=== PATIENT | male | born 1925 | race Two or more races ===

== ENCOUNTER → 2017-07-09 | Outpatient (CLI) | payer MEDICARE, OTHER ==
--- NOTE | 2017-07-09 17:21 | RAD ---
PQRS Compliance Statement: One or more of the following individualized dose reduction techniques were utilized for this examination: 1. Automated exposure control 2. Adjustment of the mA and/or kV according to patient size 3. Use of iterative reconstruction technique CT THORACIC SPINE WO CONTRAST Clinical Indication: SEVERE BACK PAIN, PATIENT KYPHOTIC, UNABLE TO BRING ARMS ABOVE HEAD Comparison: CT lumbar spine without contrast, same day. TECHNIQUE: Helical CT imaging of the thoracic spine is performed without IV contrast. Findings: Please refer to separately dictated CT lumbar spine for additional findings. There is mild nonacute compression fracture at the superior endplate of T3. There is moderate compression fracture of the T12 vertebral body. There is air along the fracture lines and at the T12/L1 disc space. Fracture lines do not reach the posterior cortex to suggest a burst fracture. There is mild retropulsion of the fracture with probably mild central canal stenosis. No high-grade central canal stenosis is identified in the thoracic spine. The vertebral body heights are otherwise maintained. The vertebral body alignment is maintained on the lateral view. There is focal kyphosis at T12. Coronary artery disease. Cardiac size upper limits of normal. No pericardial effusion. There are bilateral renal cysts. There are probably trace bilateral pleural effusions. There are groundglass or reticular opacities in the dependent lungs that may be atelectasis or scarring. There are peripheral reticular opacities that are probably chronic. Respiratory motion artifact limits evaluation. IMPRESSION: 1. There is moderate compression fracture of the T12 vertebral body that appears to be subacute to chronic. There is mild retropulsion with mild central canal stenosis. Acuity could be further assessed with MR. 2. Nonacute mild compression fracture at the superior endplate of T3. Electronically signed by: Gildardo Motta MD (07/09/2017 5:18 PM) [id number]
--- NOTE | 2017-07-09 17:54 | RAD ---
EXAM: Lumbar spine CT without contrast. HISTORY: Pain. TECHNIQUE: Computed tomographic images of the lumbar spine were obtained without contrast. Multiplanar reformatting was performed. *One or more of the following individualized dose reduction techniques were utilized for this examination: 1. Automated exposure control. 2. Adjustment of the mA and/or kV according to patient size. 3. Use of iterative reconstruction technique. COMPARISON: None. FINDINGS: There is a severe T12 compression fracture with greater than 75 percent loss of anterior vertebral body height and approximately 7 mm retropulsion of the posterior cortex into the central canal, with associated moderate central canal and bilateral T12-L1 foraminal stenosis. There is gas within an open fracture line at this level, suggesting a subacute etiology. This may also be subacute on chronic. There is also a subacute or chronic nonunited left 12th rib fracture. There is a severe chronic appearing compression fracture of L2 with near complete loss of anterior vertebral body height and 4 mm retropulsion of the cortex into the central canal, with associated [id number] central canal and bilateral L2-L3 foraminal stenosis. There is a small amount of gas within this vertebral body, suggesting a possible superimposed subacute fracture. There are mild chronic appearing compression fractures of L3 and L5. There is degenerative endplate remodeling at all levels. There is anterior endplate osteophytosis at all levels. There is facet arthropathy at all levels. There is bone demineralization. There is no suspicious osseous lesion. There is a tortuous thoracoabdominal aorta. There are bilateral iliac stents. There is extensive colonic diverticulosis. There are multiple renal cysts. At T12-L1, there is retropulsion of the T12 cortex resulting in moderate central canal stenosis. There is degenerative endplate remodeling contributing to moderate bilateral foraminal stenosis. At L1-L2, there is a disc bulge and endplate remodeling. There is mild bilateral facet arthropathy. There is mild bilateral foraminal and central canal stenosis. At L2-L3, there is retropulsion of the L2 cortex resulting in mild to moderate central canal stenosis. There is a disc bulge and endplate remodeling. The combination of these findings results in moderate bilateral foraminal stenosis. At L3-L4, there is a disc bulge and endplate osteophytosis. There is mild facet arthropathy. There is moderate bilateral foraminal stenosis. There is mild central canal stenosis. At L4-L5, there is a disc bulge and endplate osteophytosis. There is mild facet arthropathy. There is moderate bilateral foraminal stenosis. There is mild central canal stenosis. At L5-S1, there is a right foraminal to lateral disc osteophyte complex superimposed on a disc bulge and endplate osteophytosis. There is mild facet arthropathy. There is severe right and mild left foraminal stenosis. IMPRESSION: 1. Severe T12 compression fracture with associated retropulsion of the cortex contributing to moderate central canal and neural foraminal stenosis. There is appears to be subacute or subacute on chronic. 2. Severe L2 compression fracture with associated retropulsion of the cortex continuing to mild to moderate central canal and neural foraminal stenosis. This appears to be chronic or subacute on chronic. 3. Chronic mild compression fractures at L3 and L5. 4. Multilevel advanced degenerative change, resulting in stenosis as described above. 5. Bone demineralization. Electronically signed by: Dolly Jerome MD (07/09/2017 5:50 PM) [facility]
== END | disposition home or self-care (01) ==
LOC: CT 11:19
PROVIDERS: ATTEND Anesthesiology Pain Medicine
DX: M48.54XA Collapsed vertebra, not elsewhere classified, thoracic region, initial encounter for fracture (principal); M48.56XA Collapsed vertebra, not elsewhere classified, lumbar region, initial encounter for fracture; M48.061 Spinal stenosis, lumbar region without neurogenic claudication; I25.10 Atherosclerotic heart disease of native coronary artery without angina pectoris; N28.1 Cyst of kidney, acquired; M40.294 Other kyphosis, thoracic region; M25.78 Osteophyte, vertebrae; M12.88 Other specific arthropathies, not elsewhere classified, other specified site; K57.30 Diverticulosis of large intestine without perforation or abscess without bleeding; M81.8 Other osteoporosis without current pathological fracture
CPT/HCPCS: 72128; 72131